=== PATIENT | male | born 1970 | race Caucasian/White ===

== ENCOUNTER 2017-02-07 13:54 | Emergency (ER) | payer BC | END 2017-02-07 16:48 | disposition home or self-care (01) | LOC: ER 13:54 | DX: R07.9 Chest pain, unspecified (principal) ==

== ENCOUNTER 2019-08-05 12:58 | Observation (INO) | payer BC ==
[~2019-08-05] VITALS: Ht 180.3 cm; Wt 112.5 kg
[~2019-08-05 12:58] MED LIST: CARAFATE 1 GM TA1 G1 PO; FLOMAX0.4 MG PO; LISINOPRIL-HCT1 EAC1 PO
[2019-08-05 13:04] VITALS: BP 139/87
[2019-08-05 14:10] LABS: ABSOLUTE NEUTROPHILS 4.2 thou/uL (1.4-8.2); BASOPHILS 0.2 % (0.0-2.0); HEMATOCRIT 44.1 % (42.0-52.0); HEMOGLOBIN 14.8 gm/dL (14.0-18.0); LYMPHOCYTES 22.2 % (24.0-44.0); MCH 29.7 pg (26.0-34.0); MCHC 33.6 g/dL (28.0-37.0); MCV 88.4 fL (80.0-100.0); MONOCYTES 11.4 % (1.0-8.0); PLATELET COUNT 240 thou/uL (150-400); POLYS 65.2 % (36.0-66.0); RBC 4.98 mil/uL (4.50-6.00); RDW 13.1 % (10.5-14.5); WBC 6.4 thou/uL (4.0-11.0)
[2019-08-05 14:14] LABS: ANION GAP 7 mmol/L (7-16); BUN 11 mg/dL (7-18); CALCIUM 9.3 mg/dL (8.5-10.1); CHLORIDE 94 mmol/L (98-107); CO2 27 mmol/L (21-32); CREATININE 0.9 mg/dL (0.7-1.3); GLUCOSE 109 mg/dL (74-106); POTASSIUM 3.7 mmol/L (3.5-5.1); SODIUM 128 mmol/L (136-145)
[2019-08-05 14:24] LABS: ALBUMIN 4.5 g/dL (3.4-5.0); SGOT 27 U/L (15-37); SGPT 45 U/L (30-65); TOTAL BILIRUBIN 0.5 mg/dL (<0.1-1.0); TOTAL PROTEIN 7.9 g/dL (6.4-8.2); TROPONIN-I <0.06 ng/mL (<0.06)
[2019-08-05] MEDS ORDERED: FLOMAX0.4 MG PO (15:41)
[2019-08-05] MEDS ORDERED: PRILOSEC OTC20 MG PO (15:42)
[2019-08-05] MEDS ORDERED: VALSARTAN-HCTZ1 EAC1 PO (15:42)
[2019-08-05] MEDS ORDERED: REGLAN 10 MG TA10 MG PO (15:42)
[2019-08-05] MEDS ORDERED: PEPCID20 MG PO (15:43)
[2019-08-05] MEDS ORDERED: CLONAZEPAM 0.50.5 M1 PO (15:43)
[2019-08-05] MEDS ORDERED: TRILEPTAL600 MG PO (15:43)
[2019-08-05] MEDS ORDERED: CLARITIN10 M3 PO (15:43)
[2019-08-05] MEDS ORDERED: VITAMIN B-125000 MCG PO (15:43)
[2019-08-05] MEDS ORDERED: VITAMIN B-1100 M2 PO (15:44)
[2019-08-05] MEDS ORDERED: IRON18 M1 PO (15:44)
[2019-08-05] MEDS ORDERED: FOLIC ACID1 MG PO (15:44)
[2019-08-05] MEDS ORDERED: CALCIUM500 MG PO (15:45)
[2019-08-05] MEDS ORDERED: KLOR-CON 10 ER10 MEQ PO (15:45)
[2019-08-05] MEDS ORDERED: VITAMIN D32000 UNI2 PO (15:45)
[2019-08-05] MEDS ORDERED: NORVASC 2.5 MG2.5 M1 PO (15:46)
[2019-08-05] MEDS ORDERED: HORIZANT600 MG PO (15:46)
--- NOTE | 2019-08-05 16:21 | EKG ---
[facility] [place] [address] ELECTROCARDIOGRAM REPORT Name: VALENTINA BROWN Zarina Room #: [facility]#: [id number] Admission: 08/05/19 Attend Phys: Discharge: Date of : 70 Report #: [id number] THIS REPORT FOR: cc: Grayson Pope James A. DO Couchonnal, Luis F. MD ~ THIS REPORT FOR: //name// [facility] ED Test Date: 2019-08-05 Test Time: 13:02:40 Pat Name: VALENTINA BROWN Department: Room: Gender: Addiction Counselor: : 1970 Requested By: Kodi Carmona Order Number: [id number] MD: Speedy Rader Measurements Intervals [place] Rate: 105 P: 51 [place]: 161 QRS: 51 QRSD: 97 T: 4 QT: 324 QTc: 429 Interpretive Statements Sinus tachycardia Baseline wander in lead(s) V1 Compared to ECG 02/07/2017 13:54:48 Sinus rhythm no longer present Electronically Signed On 08-05-2019 16:20:56 STRING STUDIES DIRECTOR by Speedy Rader [email or web address] <ELECTRONICALLY SIGNED> By: Speedy Rader MD 08/05/19 1620 1302 1302 Speedy Rader MD /EPI
[2019-08-05 19:31] VITALS: BP 139/93
[2019-08-05 20:20] VITALS: BP 139/91
[2019-08-05 20:47] VITALS: BP 121/81
[2019-08-05 21:57] LABS: CHOLESTEROL 167 mg/dL (<200); HDL CHOLESTEROL 62 mg/dL (>40); LDL CHOLESTEROL 51 mg/dL (<100); PHOSPHORUS 3.8 mg/dL (2.5-4.9); PROTIME 9.8 Seconds (9.3-11.4); TC:HDL 2.7 Ratio (Not establshd); TRIGLYCERIDE 274 mg/dL (<150); VLDL 55 mg/dL (<40)
[2019-08-05 22:05] LABS: SERUM ASSESSMENT Slight Lipemia
[2019-08-06 00:49] VITALS: BP 139/90
[2019-08-06] MEDS ORDERED: MELOXICAM15 MG PO (01:02)
[2019-08-06] MEDS ORDERED: FLEXERIL PO ×2 (01:03→01:05)
--- NOTE | 2019-08-06 04:40 | NUR ---
PATIENT ARRIVED ON UNIT AROUND 1999. PLACED ON TELEMETRY AND SETTLED INTO ROOM. ADMITTED INTO COMPUTER SYSTEM. ASSESSMENTS CHARTED, MEDS CHARTED GIVEN. DENIES PAIN, SINUS TACH, SINUS RHYTHM ON TELEMETRY, NO EDEMA, ON ROOM AIR. NPO SINCE MIDNIGHT FOR CARDIAC CATH, IF HE STAYS HE WILL NEED A GLUTEN-FREE DIET. UP AT [facility] IN ROOM.
[2019-08-06 04:45] VITALS: BP 126/73
--- NOTE | 2019-08-06 07:56 | NUR ---
PT OFF UNIT TO DIRECTOR OF REVENUE CYCLE MANAGEMENT.
--- NOTE | 2019-08-06 09:18 | NUR ---
0900 PT RETURN FROM MANAGEMENT INTERNSHIP.
[2019-08-06 11:10] VITALS: BP 134/84
[2019-08-06 11:19] LABS: ANION GAP 9 mmol/L (7-16); BUN 10 mg/dL (7-18); CALCIUM 8.8 mg/dL (8.5-10.1); CHLORIDE 101 mmol/L (98-107); CO2 24 mmol/L (21-32); GLUCOSE 86 mg/dL (74-106); PHOSPHORUS 3.1 mg/dL (2.5-4.9); POTASSIUM 4.4 mmol/L (3.5-5.1); SODIUM 134 mmol/L (136-145); TROPONIN-I <0.06 ng/mL (<0.06)
--- NOTE | 2019-08-06 14:59 | CATHLAB ---
[facility] [place] [address] INVASIVE PROCEDURE REPORT Name: VALENTINA BROWN Room #: 219-P ADM IN M.R.#: [id number] Admission: 08/05/19 Attend Phys: Kristy Teran MD Discharge: Date of : 70 Report #: [id number] THIS REPORT FOR: cc: Grayson Pope James A. DO Park, Jin S. MD ~ APPROVED REPORT Study performed: 08/06/2019 07:36:52 Patient Details Patient Status: In-Patient Room #: The patient is a 49 year-old male Event Personnel Stiven Frances High Frequency Mill Operator, Bhakti Briceno RN, Catalina Glynn RTR, POPEYE Verdugo, Tabatha Randle Monitor Procedures Performed Art Access - R radial artery Left Heart Cath w/or w/o Coronaries [id number] [facility] [address] Initial Mod Sed Same Phys/QHP [facility] [id number] 16304 Mod Sed Same Phys/QHP Ea 506506 Indication Dyspnea, Unstable angina , Chest pain Risk Factors Hypercholesterolemia, Hypertension, Tobacco History () Procedure Narrative The Right Wrist^ was infiltrated with 1% Lidocaine subcutaneous anesthesia. A PINNACLE 6FR TIF Sheath #[id number] sheath was inserted into the Right Radial Artery^. Coronary angiography was performed using coronary diagnostic catheters. The right coronary system was accessed and visualized with a JR4 catheter. The left coronary system was accessed and visualized with a JL 3.5 catheter. The left ventricle was accessed and visualized with a ANGLE PIG catheter. Left ventriculogram was performed in 30 degree projection. The patient tolerated the procedure well and there were no complications associated with the procedure. There was no hematoma. Intraoperative Conscious Sedation Sedation start time: 814 Case end Time: 839 [facility] [address] [place] [address] INVASIVE PROCEDURE REPORT Name: VALENTINA BROWN Zarina Room #: 219-P [facility] IN ..#: [id number] Admission: 08/05/19 Attend Phys: Kristy Teran, Discharge: Date of : 70 Report #: [id number] Fentanyl 75 mcg Versed 1 mg Fluoro Time: 3.90 minutes Dose: DAP 7192.00 cGycm2 1074 mGy Contrast Type and Amount: Omnipaque 65 ml Coronary Angiography The patient's coronary anatomy is right dominant. Diagnostic Cath Left Main The left main artery is a large-caliber vessel, patent with no flow-limiting lesions. LAD The LAD is a moderate size caliber vessel, traverses the anterior wall and wraps around the apex. This vessel is patent with minimal luminal irregularities in the mid segment. Diagonal 1 This is a moderate size caliber vessel, patent with no flow-limiting lesions. Circumflex Supplies one OM vessel. OM1 This is a small to moderate size caliber vessel, patent with no flow-limiting lesions. Right Coronary This is a moderate to large caliber vessel, dominant. This vessel is patent with no flow-limiting lesions. R PDA The PDA is a high takeoff from the mid segment of the RCA, patent with no flow-limiting lesions. RPLV This is a moderate size caliber vessel, patent with no flow-limiting lesions. Left Ventriculography The left ventricle is normal in size with normal contractility. The left ventricular ejection fraction is estimated to be 55-60%. Hemodynamics The aortic pressure is 121/93 mmHg with a mean of 101 mmHg. The left ventricular pressure is 122/4 mmHg with a mean of mmHg. The left ventricular end diastolic pressure is 13 mmHg. There was no gradient across the aortic valve upon pullback. Conclusion 1. Angiographically normal coronary arteries. There may be minimal luminal irregularities in the mid LAD segment. [facility] [address] [place] [address] INVASIVE PROCEDURE REPORT Name: VALENTINA BROWN Room #: 219-P [facility] IN .R.#: [id number] Admission: 08/05/19 Attend Phys: Kristy Teran, Discharge: Date of : 70 Report #: [id number] 2. Normal LV systolic function. 3. Recommend risk factor management. <ELECTRONICALLY SIGNED> By: Stiven Frances MD 08/06/19 1458 1458 1458 Stiven Frances MD /NADIR
[2019-08-06 16:00] VITALS: BP 126/81
[2019-08-06] MEDS ORDERED: COZAAR 50 MG TA50 M1 PO (16:29)
[2019-08-06 16:58] VITALS: BP 130/81
== END 2019-08-06 17:53 | disposition home or self-care (01) ==
LOC: ER 12:58 → EROBS 16:19 → 2N 16:19
PROVIDERS: Emergency Medicine; Internal Medicine Cardiovascular Disease; ADMIT Internal Medicine
DX: R07.89 Other chest pain (principal); E87.1 Hypo-osmolality and hyponatremia; I10 Essential (primary) hypertension; K21.9 Gastro-esophageal reflux disease without esophagitis; E66.9 Obesity, unspecified; F39 Unspecified mood [affective] disorder; K90.0 Celiac disease; E78.5 Hyperlipidemia, unspecified; R42 Dizziness and giddiness; Z68.34 Body mass index [BMI] 34.0-34.9, adult
CPT/HCPCS: 10797